=== PATIENT | female | born 1955 | race American Indian/Alaskan Native ===

== ENCOUNTER 2016-08-07 19:17 | Emergency (ER) | payer OTHER ==
[2016-08-07 19:17] VITALS: BMI 29.2
[2016-08-07 19:28] VITALS: BP 135/92; PULSE 83; RESP 16; TEMP 97.3; O2SAT 98
--- NOTE | 2016-08-07 20:20 | C.PDOC ---
History Of Present Illness 61 year old female presents to the ED with complaints of left ankle pain radiating up her calf that is worse in the mornings that has been intermittent for the last three months. Patient states she fell twice three months ago and did not seek medical care. She works on her feet as well and denies any recent trauma, recent travel, recent immobilization or known coagulability state. Time Seen by Provider: 08/07/16 20:08 Chief Complaint (Nursing): Lower Extremity Problem/Injury History Per: Patient History/Exam Limitations: no limitations Onset/Duration Of Symptoms: Intermittent Episodes (for three months ) Current Symptoms Are (Timing): Still Present Recent travel outside of the [place]: No - Ankle/Foot Description Of Injury: Fell (fell twice three months ago, denies recent trauma ) Past Medical History Reviewed: Historical Data, Nursing Documentation, Vital Signs Vital Signs: Last Vital Signs Temp 97.3 F L 08/07/16 19:25 Pulse 83 08/07/16 19:25 Resp 16 08/07/16 19:25 BP 135/92 H 08/07/16 19:25 Pulse Ox 98 08/07/16 20:39 Family History: States: Unknown Family Hx - Social History Hx Alcohol Use: No Hx Substance Use: No - Immunization History Hx Tetanus Toxoid Vaccination: No Hx Influenza Vaccination: No Hx Pneumococcal Vaccination: No Review Of Systems Respiratory: Negative for: Shortness of Breath Musculoskeletal: Positive for: Leg Pain (pain radiates up left calf ), Other ( left ankle pain ) Neurological: Negative for: Weakness, Numbness Physical Exam - Physical Exam Appears: Non-toxic, No Acute Distress Skin: Warm, Dry Head: Atraumatic Eye(s): bilateral: Normal Inspection, PERRL Neck: Supple Chest: Symmetrical, No Deformity Cardiovascular: Rhythm Regular Extremity: Normal ROM, Tenderness (tenderness to left lateral ankle and posterior left ankle), No Pedal Edema, No Calf Tenderness, Capillary Refill ( good capillary refill ), No Deformity, No Swelling, Other (Excoriation between 4th and 5th toe on left foot.) Extremity: Bilateral: Atraumatic, Normal Color And Temperature Pulses: Left Dorsalis Pedis: Normal, Right Dorsalis Pedis: Normal Neurological/Psych: Oriented x3, Normal Motor, Normal Sensation Gait: Steady ED Course And Treatment O2 Sat by Pulse Oximetry: 98 (room air ) Pulse Ox Interpretation: Normal - Other Rad Left ankle X-Ray: Interpreted by Me Interpretation: No fx, dislocation Progress Note: Please follow up with PMD or clinic , pt understands return precautions Disposition Counseled Patient/Family Regarding: Diagnosis, Need For Followup, Rx Given - Disposition Referrals: at [facility] [Outside] Disposition: HOME/ ROUTINE Disposition Time: 21:14 Condition: STABLE Additional Instructions: Apply YVONNE wrap for support Wear support shoes Take motrin for pain Must follow up in clinic Return to ER if worse Prescriptions: Clotrimazole 1% Cream [Lotrimin 1%] 1 appl TP BID #1 tube Ibuprofen [Motrin] 600 mg PO TID #20 tab Instructions: Arthralgia (ED), Tinea Pedis (ED) - Clinical Impression Clinical Impression: Ankle joint pain, Tinea pedis - Scribe Statement The provider has reviewed the documentation as recorded by the Scribe Iliana Soria All medical record entries made by the Geraldineibsherie were at my direction and personally dictated by me. I have reviewed the chart and agree that the record accurately reflects my personal performance of the history, physical exam, medical decision making, and the department course for this patient. I have also personally directed, reviewed, and agree with the discharge instructions and disposition.
--- NOTE | 2016-08-08 08:43 | RAD ---
PROCEDURE: Left Ankle Radiographs. HISTORY: pain, lateral, posterior COMPARISON: None FINDINGS: BONES: Normal. No fracture. JOINTS: Normal. No osteoarthritis. Ankle mortise maintained. Talar dome intact SOFT TISSUES: Mild subcutaneous edema is suggested the arrows indicating the area of pain project laterally. Actually the medial soft tissues appear more prominent OTHER FINDINGS: None. IMPRESSION: No fracture or dislocation. Generalized soft tissue swelling -lymphedema probable
== END 2016-08-07 21:30 | disposition home or self-care (01) ==
LOC: C.ER 19:17
DX: M25.572 Pain in left ankle and joints of left foot (principal); B35.3 Tinea pedis

== ENCOUNTER 2017-02-03 06:28 | Emergency (ER) | payer OTHER ==
[2017-02-03 06:28] VITALS: BMI 29.2
[2017-02-03 06:36] VITALS: TEMP 97.5
--- NOTE | 2017-02-03 07:36 | C.PDOC ---
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 Pt reports, slipped on ice and landed onto Right side. Pain is localized over Right shoulder, worse with Right arm movement. Otherwise, pt denies head injury, LOC, syncope, headache, visual changes, focal deficits, denies CP, SOB, dyspnea, diaphoresis, palpitation, denies deformity, weakness, sensory or vascular deficits to Right arm. Ambulate to ED for evaluation, not in any apparent distress. Time Seen by Provider: 02/03/17 07:25 Chief Complaint (Nursing): Upper Extremity Problem/Injury History Per: Patient Past Medical History Reviewed: Historical Data, Nursing Documentation, Vital Signs Vital Signs: Last Vital Signs Temp 97.5 F L 02/03/17 06:33 Pulse 76 02/03/17 08:45 Resp 17 02/03/17 08:45 BP 121/69 02/03/17 08:45 Pulse Ox 97 02/03/17 08:45 Family History: States: No Known Family Hx - Social History Hx Tobacco Use: No Hx Alcohol Use: No Hx Substance Use: No - Immunization History Hx Tetanus Toxoid Vaccination: No Hx Influenza Vaccination: No Hx Pneumococcal Vaccination: No Review Of Systems Except As Marked, All Systems Reviewed And Found Negative. Eyes: Negative for: Vision Change ENT: Negative for: Ear Discharge, Nose Discharge Cardiovascular: Negative for: Chest Pain, Palpitations, Edema, Light Headedness Respiratory: Negative for: Cough, Shortness of Breath, SOB with Excertion Genitourinary: Negative for: Incontinence Musculoskeletal: Positive for: Shoulder Pain Skin: Negative for: Rash, Bruising Neurological: Negative for: Weakness, Numbness, Seizures, Altered Mental Status , Headache, Dizziness Physical Exam - Physical Exam Appears: Well, Non-toxic, No Acute Distress Skin: Normal Color, Warm, No Rash, No Ecchymosis Head: Atraumatic, Normacephalic Eye(s): bilateral: PERRL Nose: No Deformity Cardiovascular: Rhythm Regular, No Friction Rub, No Murmur, No JVD Respiratory: No Decreased Breath Sounds, No Accessory Muscle Use, No Rales, No Rhonchi, No Stridor Gastrointestinal/Abdominal: Soft, No Tenderness Extremity: Normal ROM (FAROM of Right UE, no neurovascular deficits.), Tenderness (over laetral aspect Right shoulder extends down to proximal humerus. ), No Deformity, No Swelling Neurological/Psych: Oriented x3, Normal Speech, Normal Motor, Normal Sensation, Normal Reflexes ED Course And Treatment O2 Sat by Pulse Oximetry: 99 Pulse Ox Interpretation: Normal - Other Rad RIGHT SHOULDER X-Ray: Interpreted by Me, Viewed By Me Interpretation: NO ACUTE FX OF DISLOCATION RIGHT HUMERUS X-Ray: Interpreted by Me, Viewed By Me Interpretation: NO ACUTE FX OR DISLOCATION Progress Note: On re-eval, pt is afebrile, hemodynamicaly stable. Non-toxic. Ambulatory in ED with stable gait. RUE: exam c/w shoulder contusion/strain. NO defomrity. FAROM, no neurovascular deficits. Xray review (-) acute fx. SLing, NSAIDs. Pt advised. ref. to F/u with Ortho in2 -3 days for re-eavl. return to ED if any worsening or new changes. Disposition Counseled Patient/Family Regarding: Studies Performed, Diagnosis, Need For Followup, Rx Given - Disposition Referrals: Doreen Arteaga MD [Staff Provider] - Disposition: HOME/ ROUTINE Disposition Time: 08:12 Condition: STABLE Additional Instructions: SLING FOR 1 WEEK LIGHT DUTY TO RIGHT ARM, AVOID LIFTING TAKE PAIN MEDICATION NEED FOLLOW UP WITH ORTHOPEDIST IN 2-3 DAYS FOR RE-EVALUATION. RETURN TOE D IF ANY WORSENING OR NEW CHANGES. Prescriptions: Ibuprofen [Motrin Tab] 400 mg PO Q6 #20 tab Instructions: Shoulder Sprain (ED) Forms: [facility] (Faroese), Work Excuse - Clinical Impression Clinical Impression: Shoulder contusion
[2017-02-03 08:46] VITALS: BP 121/69; PULSE 76; RESP 17
--- NOTE | 2017-02-03 09:45 | RAD ---
PROCEDURE: Radiographs of the Right Shoulder HISTORY: Injury COMPARISON: No prior. FINDINGS: BONES: Bone alignment and mineralization are normal. There is a well-circumscribed round lucency with sclerotic margin in the humeral head with narrow zone of transition most certainly benign and could represent a bone cyst. JOINTS: Normal. Glenohumeral and acromioclavicular joints preserved. No osteoarthritis. SOFT TISSUES: Normal. OTHER FINDINGS: None. IMPRESSION: No acute fracture or dislocation.
--- NOTE | 2017-02-03 09:50 | RAD ---
PROCEDURE: Radiographs of the right humerus. HISTORY: Injury COMPARISON: None. FINDINGS: BONES: There is no acute fracture or bone destruction. There is diffuse bone demineralization. SOFT TISSUES: Normal. OTHER FINDINGS: None. IMPRESSION: No acute fracture.
[2017-02-04 08:24] VITALS: O2SAT 99
== END 2017-02-03 08:52 | disposition home or self-care (01) ==
LOC: C.ER 06:28
DX: S40.011A Contusion of right shoulder, initial encounter (principal); W00.0XXA Fall on same level due to ice and snow, initial encounter; Y92.89 Other specified places as the place of occurrence of the external cause

== ENCOUNTER 2017-06-16 20:06 | Emergency (ER) | payer SELFPAY ==
[2017-06-16 20:07] VITALS: BMI 29.2
[2017-06-16 20:19] VITALS: BP 131/87; PULSE 78; RESP 20; TEMP 97.7; O2SAT 97
--- NOTE | 2017-06-16 21:15 | C.PDOC ---
History Of Present Illness 62 y/o female presents to ED with c/o left lower leg pain and right shoulder pain " for a long time". Patient reports pain is worse in the morning when trying to get out of bed and denies numbness, weakness, injury or any other complaints at this time. Time Seen by Provider: 06/16/17 20:26 Chief Complaint (Nursing): Lower Extremity Problem/Injury History Per: Patient History/Exam Limitations: no limitations Onset/Duration Of Symptoms: Days Current Symptoms Are (Timing): Still Present Past Medical History Reviewed: Historical Data, Nursing Documentation, Vital Signs Vital Signs: Last Vital Signs Temp 97.7 F 06/16/17 20:17 Pulse 78 06/16/17 20:17 Resp 20 06/16/17 21:22 BP 131/87 06/16/17 20:17 Pulse Ox 97 06/16/17 21:34 - Medical History PMH: No Chronic Diseases Surgical History: No Surg Hx Family History: States: No Known Family Hx - Social History Hx Tobacco Use: No Hx Alcohol Use: No Hx Substance Use: No - Immunization History Hx Tetanus Toxoid Vaccination: No Hx Influenza Vaccination: No Hx Pneumococcal Vaccination: No Review Of Systems Cardiovascular: Negative for: Chest Pain Musculoskeletal: Positive for: Shoulder Pain, Leg Pain Skin: Negative for: Rash Neurological: Negative for: Weakness, Numbness Physical Exam - Physical Exam Appears: Non-toxic, No Acute Distress Skin: Warm, Dry, No Rash Head: Atraumatic, Normacephalic Eye(s): bilateral: Normal Inspection Oral Mucosa: Moist Extremity: Tenderness (To right arm), No Pedal Edema, No Calf Tenderness, Capillary Refill (<2 seconds), No Deformity, No Swelling, Other (Left lower leg varicose veins. No erythema ) Extremity: Bilateral: Atraumatic, Normal Color And Temperature, Normal ROM Pulses: Right Brachial: Normal Neurological/Psych: Oriented x3, Normal Motor, Normal Sensation Gait: Steady ED Course And Treatment O2 Sat by Pulse Oximetry: 97 (RA) Pulse Ox Interpretation: Normal Medical Decision Making Medical Decision Making: Patient discharged and advised f.u with clinic in 1-2 days. Disposition Counseled Patient/Family Regarding: Diagnosis, Need For Followup, Rx Given - Disposition Referrals: [facility] [Outside] [facility] [Outside] Disposition: HOME/ ROUTINE Disposition Time: 21:13 Condition: STABLE Additional Instructions: Leg elevation Recommend compression stockings Take motrin for pain as needed Return to ER if worse Prescriptions: Ibuprofen [Motrin] 600 mg PO Q6H #20 tab Instructions: Joint Pain Forms: [facility] (Telugu), Gen Discharge Inst Japanese - Clinical Impression Clinical Impression: Arthralgia, Varicose vein of leg - 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 - Scribe Statement The provider has reviewed the documentation as recorded by the Juan Miller All medical record entries made by the Juan were at my direction and personally dictated by me. I have reviewed the chart and agree that the record accurately reflects my personal performance of the history, physical exam, medical decision making, and the department course for this patient. I have also personally directed, reviewed, and agree with the discharge instructions and disposition.
== END 2017-06-16 21:22 | disposition home or self-care (01) ==
LOC: C.ER 20:06
DX: I83.92 Asymptomatic varicose veins of left lower extremity (principal); M25.50 Pain in unspecified joint